=== PATIENT | female | born 1955 | race Caucasian/White ===

== ENCOUNTER 2017-01-09 12:07 | Day surgery (SDC) | payer OTHER ==
[~2017-01-09] VITALS: Ht 172.7 cm; Wt 69.3 kg
[2017-01-09] VITALS (9 sets, daily range): BP systolic 107–124; BP diastolic 50–69; PULSE 65–73; RESP 9–16; O2SAT 96–100
[~2017-01-09 12:07] MED LIST: COD1CAPS6 PO; FLAX340P PO; MIRA25TA PO; OMEG10005 PO; PRE20 PO; VIT1TABL83 PO; [UNRECOGNIZED DRUG - CODE] MM
[2017-01-09] MEDS ORDERED: EPHEDrine/NS 5 mg/mL 5 mL Syringe ONE (12:08)
[2017-01-09] MEDS ORDERED: fentaNYL-PF 50 mCg/mL 2 mL Inj ONE (12:08)
[2017-01-09] MEDS ORDERED: Propofol 10,000 mCg/mL 20 mL Inj ONE (12:08)
[2017-01-09] MEDS ORDERED: Ondansetron 2 mg/mL 2 mL Inj ONE (12:08)
[2017-01-09] MEDS ORDERED: Dexamethasone 4 mg/mL Inj ONE (12:08)
[2017-01-09] MEDS: Lactated Ringer's 1,000 ML IV SCH ×2 (12:10→14:33)
[2017-01-09] MEDS ORDERED: Lactated Ringer's 500 ML IV PRN (14:19)
[2017-01-09] MEDS ORDERED: Lactated Ringer's 1,000 ML IV SCH (14:19)
--- NOTE | 2017-01-09 14:19 | PCM.HPANE ---
Patient Data Date of Service: Jan 09, 2017 Surgeon Admitting Provider: Attending Provider:Puneet Wild MD Primary Care Physician:[facility] Other Provider:Fanny Munoz Anesthesia Reason for Visit Postmenopausal Bleeding Ht/WT & BMI Height (Feet): 5 Height (Inches): 9 Weight (Kilograms): 71.668 Body Mass Index 23.00 Allergies Coded Allergies: No Known Allergies (Verified Allergy, Unknown, 01/09/17) Past Anesthesia History Anesthesia History: Denies:: Abnormal Airway, Anesthesia Reactions, Difficult Intubation, Fam Anesthesia Reaction, Fam Malignant Hypertherm, Malignant Hyperthermia Diabetes History Hx Diabetes?: No MRSA MRSA: No Medications Home Meds Incl Beta Kel: No Reported Medications Mirabegron ER (Myrbetriq)25 Mg Eypnac19 Mg PO DAILY 01/05/17 Vit B Comp/C/FA/Iron/Vit E (Vitamin B Complex Tablet)1 Each Tablet1 Each PO 10/05/15 Flaxseed (Numoisyn)300 Ml Htnoek642 Ml MM DIRECTED PRN dry mouth 10/05/15 Flaxseed 340 Gm Wfmxug332 Gm PO DAILY 10/05/15 Cod Liver Oil 1 Each Capsule1 Each PO DAILY PRN as directed 10/05/15 [place]-3 Fatty Acids ([place]-3)1,000 Mg Brquqrr621-082 Mg PO DAILY 12/02/14 Discontinued Reported Medications Prednisone (PredniSONE)20 Mg Ttyqdd94 Mg PO DAILY Ref 0 01/05/17 Acetaminophen 325 Mg Wlsjnu194 Mg PO Q4H PRN For Fever Ref 0 10/05/15 Beta-Carotene (Lumitene)30 Mg Wczyijj42 Mg PO 10/05/15 [adrenal] No Conflict Check 12/03/14 [wild yam] No Conflict Check 12/03/14 [femco] No Conflict Check 12/03/14 [cortisol] No Conflict Check 12/03/14 Naproxen Sodium (Aleve)220 Mg Jpfnddf346 Mg PO Q12 12/02/14 History History of ENT Problems?: Yes HEENT History: Positive for:: Hearing Problem Denies:: Abnormal Airway Difficult Intubation Dysphagia Other HEENT Pertinent History: DECREASED TASTE & SMELL, IATROGENIC CUSHINGOID FEATURES S/P TONSILLECTOMY Hx of Heart Problems?: Yes Cardiovascular History: Positive for:: Irregular Heartbeat (HX OF SVT/ PALPITATIONS) Denies:: AICD Atrial Fibrillation Chest Pain Congestive Heart Failure Heart Murmur (ECHO 01/2013 EF 55-60%) Hypertension Pacemaker Valvular Heart Disease Hx of Respiratory Problem?: Yes Respiratory History: Positive for:: Pneumonia (PLUS BRONCHITIS W/ CAVITARY LESIONS S) Denies:: Asthma COPD Chest Surgery (S/P BRONCHOSCOPY W/U @ [facility] SY[facility].-SARCOIDOSIS ) Cough Hemoptysis Tuberculosis Hx Neurologic Problems?: No Neurological History: Denies:: CVA Dementia Hx of GI Problems?: Yes Gastrointestinal History: Positive for:: Gastroesphageal Reflux Denies:: Cirrhosis Diverticulitis (DIVERTICULOSIS) Hiatal Hernia Rectal Bleeding (HEMORRHOIDS) Other GI Pertinent History: S/P INGUINAL HERNIA RPR Hx of Problems?: Yes Female Hx: Denies:: Currently Skin History: Denies:: History Skin Disorders? Pressure Ulcers Hx Musculoskeletal Problems?: Yes Musculoskeletal History: Positive for:: Osteoarthritis Denies:: Back Injury (C/OF BACK PAIN) Joint Replacement Hx of Psycho/Social Problems?: No Psycho Social History: Denies:: Anxiety Hx Depression Hx Surgeries?: Yes (TONSILLECTOMY,INGUINAL HERNIA RPR CERVICAL CONE BX, BRONCHOSCOPY) Hx Any Other Health Problems?: Yes Other History: Denies:: Cancer Endocrine Disease Hospitalization Thyroid Disease History Blood Transfusions: Denies:: Blood Transfusions Hx Diabetes: No Hx Alcohol Use: No (QUIT )Hx Substance Use: No (QUIT -HX OF MARIJUANA,COCAINE ABUSE) Smoking Status: Never Smoker Have You Smoked inLast 12 mo: NoApprox How Many Cigarettes/day: 1/2 PPD X 3YRS Stop/Bang S-Snoring: Do You Snore Loudly: No T-Tired: feel tired, fatigued: No O-Obsered: Observed not breath: No P-Blood Pressure: treated: No B- Body Mass Index > 35 kg/m2: No A- Age over 50: Yes N- Neck Large Circumference: No G- Gender Male: No OSVALDO Total Score: 1 OSVALDO Risk Assessment: Low Risk, <3 Yes Risk Assessment Category Category 1A: Patient has history of documented sleep apnea, and HAS NOT received any narcotic, sedative or anesthesia administration during this stay. Category 1B: Patient has history of documented sleep apnea, and HAS received any narcotic , sedative or anesthesia administration during this stay Category 2: Patient has SUSPECTED Obstructive Sleep Apnea, and HAS received any narcotic , sedative or anesthesia administration during this stay. Category 3: Patient has SUSPECTED Obstructive Sleep Apnea and HAS NOT received narcotic, sedative or anesthesia administration during this stay. Category 4: Outpatient in Procedural Areas with known sleep apnea or who screen positive for High Risk via the STOP/BANG questionnaire. Exam Exam General Appearance: Alert, Oriented X3, Cooperative, No Acute Distress HEENT/AIRWAY: MP 2 Lungs: Normal Air Movement Heart: Exam Unremarkable Meds/Labs/Diagnostics Admission Meds Current Medications Lactated Ringer's (Lr) 1,000 ml @ 120 mls/hr Q8H20M IV Last administered on t 12:10; Start 01/09/17 at 05:00; Stop 01/09/17 at 13:19 Plan Impression Patient chart reviewed, patient interviewed and anesthestic plan with risks, benefits, and alternatives discussed, and informed consent obtained. NPO Status: 01/08 2200 ASA Physical Status: ASA2 Mod Systemic Disease Anesthetic Plan: GA Bene/Risks/Altern/Consents: Yes HP Complete Prior to Induction: Yes Maverick Zee MD Jan 09, 2017 13:02
[2017-01-09] MEDS ORDERED: Ondansetron 2 mg/mL 2 mL Inj IVPUSH PRN (14:20)
[2017-01-09] MEDS ORDERED: Dexamethasone 4 mg/mL Inj IVPUSH PRN (14:20)
[2017-01-09] MEDS ORDERED: HYDROmorphone 1 mg/mL Inj IVPUSH PRN (14:20)
[2017-01-09] MEDS ORDERED: Phenylephrine 10,000 mCg/mL Inj IVPUSH PRN (14:20)
[2017-01-09] MEDS ORDERED: Labetalol 5 mg/mL 4 mL Inj IV PRN (14:20)
[2017-01-09] MEDS ORDERED: hydrALAZINE 20 mg/mL Inj IVPUSH PRN (14:20)
[2017-01-09] MEDS ORDERED: MetoCLOpramide 5 mg/mL 2 mL Inj IVPUSH PRN (14:20)
[2017-01-09] MEDS ORDERED: Atropine 0.4 mg/mL Inj IVPUSH PRN (14:20)
[2017-01-09] MEDS ORDERED: EPHEDrine Sulfate 50 mg/mL Inj IVPUSH PRN (14:20)
[2017-01-09] MEDS ORDERED: fentaNYL-PF 50 mCg/mL 2 mL Inj IVPUSH PRN (14:20)
[2017-01-09] MEDS ORDERED: Albuterol-Ipratropium 3 mL Inhalation Solution NEB PRN (14:20)
[2017-01-09] MEDS ORDERED: Lidocaine 1%-Epi 1:100,000 20 mL Inj INFILTRATE ONE (14:48)
--- NOTE | 2017-01-09 15:36 | PCM.ANEP2 ---
Post Anesthesia Evaluation ASA/CMS Post Anesthesia Date of Service: Jan 09, 2017 VS in Patient's Normal Range?: Yes Resp Stable; Airway Patent?: Yes CV Function & Hydration Stable: Yes Mental Status Recovered?: Yes Pain control Satisfactory?: Yes N/V Control Satisfactory?: Yes Maverick Zee MD Jan 09, 2017 15:36
--- NOTE | 2017-01-09 15:36 | PCM.ANEP1 ---
Post Anesthesia Phase 1 PACU Phase 1 Assessment Date of Service: Jan 09, 2017 Vital Signs Vital Signs Date Time Temp Pulse Resp B/P Pulse Ox O2 Delivery O2 Flow Rate FiO2 01/09/17 13:18 36.3 67 16 124/69 96 Room Air Anesthetic Administered: GA Level of Alertness: Sleepy, easy to arouse RAYMUNDO's with Equal Strength: Yes Pain: No Nausea or Vomiting: No Oxygen Delivery: Nasal Cannula Lungs: Normal Air Movement Maverick Zee MD Jan 09, 2017 15:36
--- NOTE | 2017-01-09 15:37 | PCM.DIMED ---
Discharge Instructions Date of Service Jan 09, 2017 Dates of Hospitalization Diet No restrictions Activity No restrictions Call your provider Fever or Chills, Shortness of breath, Bleeding, Chest pain, Vomitting, Excessive diarrhea Patient Instructions Follow-up with PCP in: 2 weeks Puneet Wild MD Jan 09, 2017 15:36
--- NOTE | 2017-01-09 16:11 | OP ---
[address] [address] OPERATIVE REPORT PATIENT: EDELMIRA WADE : 1955 MR#: [id number] ADMIT: 01/09/2017 JOB ID: [id number] DATE OF SURGERY: 01/09/2017 PROCEDURE: 1. Diagnostic hysteroscopy. 2. Removal of right labia majora sebaceous cyst. PREOPERATIVE DIAGNOSIS(ES): 1. Postmenopausal bleeding. 2. Sebaceous cyst. POSTOPERATIVE DIAGNOSIS(ES): 1. Postmenopausal bleeding. 2. Sebaceous cyst. SURGEON: Puneet Wild MD. ANESTHESIA: General. ESTIMATED BLOOD LOSS: 5 mL. ESTIMATED URINE OUTPUT: 100 mL. FLUIDS: 800 mL of lactated Ringer. Fluid deficit using MyoSure hysteroscope 800 mL. COMPLICATIONS: None. PROCEDURE: The patient was brought to the operating room, where she underwent general anesthesia without difficulties. The patient was then placed in the dorsal lithotomy position using Carlo stirrups. She was prepped and draped in usual surgical fashion. Time-out was performed verifying correct patient, correct procedure. Two Campbell speculums were placed in the vagina. The cervix was identified and grasped with a tenaculum. It was very stenotic. Intracervical block was used using 2% lidocaine. A total of 20 cc of lidocaine was used during the procedure. Using Hegar dilators, the cervix was dilated to 8 mm. With the MyoSure hysteroscope, the uterine cavity was reviewed. The patient had atrophic changes. No polyps or significant intrauterine lesions were detected. The instruments were removed. There were two spotting areas at the insertion of the tenaculum that were controlled with application of silver nitrate sticks. The patient had 0.5 cm right labial sebaceous cyst that was removed. The area of the cyst was excised with the scalpel and the skin was reapproximated using 3-0 Vicryl. One interrupted stitch was applied. The specimen was sent to Pathology. All the instruments were removed and good hemostasis was achieved. The patient was repositioned back into the supine position. She tolerated the procedure well and was transferred to the recovery room in stable condition.
--- NOTE | 2017-01-11 14:17 | PATH ---
SURGICAL PATHOLOGY Attending Physician:Puneet Wild MD CASE STATUS: Signed Out PATIENT NAME: EDELMIRA WAED PID: [id number] : 1955 DATE COLLECTED:01/09/2017 23:28 SPECIMEN: Labium, Biopsy CLINICAL HISTORY: POST MENOPAUSAL BLEEDING SEBACEOUS CYST 1). RIGHT LABIA MAJORA SKIN LESION FINAL DIAGNOSIS: 1.RIGHT LABIA MAJORA SKIN LESION: EPIDERMAL INCLUSION CYST. NO EVIDENCE OF MALIGNANCY. ICD10 CODE L72.0 GROSS DESCRIPTION: The specimen is received in one formalin filled container labeled with the patient's name, sublabeled "right labia majora skin lesion" and consists of a 0.4 x 0.3 x 0.2 CM ansari-urias portion of tissue and friable material inked blue bisected and entirely submitted in one cassette 01/10/2017 DAC MICRO DESCRIPTION: See diagnosis. ICD-9 CODES: CPT CODES: 97473 Electronically Signed Out Marlene Snowden MD [facility] [address], [place] [address] Technical component performed at [facility], [facility] [address], [place], [address]
== END 2017-01-09 23:59 | disposition home or self-care (01) ==
LOC: SAS 12:07
PROVIDERS: ATTEND Legal Medicine
DX: N95.0 Postmenopausal bleeding (principal); L72.0 Epidermal cyst; K21.9 Gastro-esophageal reflux disease without esophagitis; M19.90 Unspecified osteoarthritis, unspecified site; Z79.899 Other long term (current) drug therapy
CPT/HCPCS: 57135; 58558; J1100; J2250; J2405; J3010; J7120

== ENCOUNTER 2017-02-01 03:18 | Emergency (ER) | payer OTHER ==
[~2017-02-01] VITALS: Ht 172.7 cm; Wt 68.2 kg
[~2017-02-01 03:18] MED LIST changes: -PRE20 PO
[2017-02-01 03:27] VITALS: BP 133/54; PULSE 92; RESP 18; O2SAT 92
--- NOTE | 2017-02-01 03:31 | ED.REPORT ---
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 Yesterday morning, the patient woke up with body aches and chills. The patient took Tylenol and took a hot bath which relieved her symptoms. Then at 2230 the patient started to have a headache and body aches rated 8/10. She went to bed and then began to have severe chills like she has never experienced before, severe joint pain, and extreme thirst. The patient subsequently took 3 Tylenol and went to bed again, and then decided to go to the ED. Body aches are currently rated 4/10. The patient does have baseline body aches related to degenerative disease, with current body aches being worse than baseline. She does not have baseline chills. The patient has baseline heart skips, but reports that she is not experiencing any heart skips different than baseline.Associated symptoms include intermittent dysuria in the last few days, the patient reporting that she has felt like she has had a bladder infection. She also has baseline cough. She denies any fever, new cough, ear pain, or sore throat. Nursing Notes Stated Complaint: BODY ACHES Chief Complaint: General Complaint Nursing Notes Reviewed: Yes Allergies: Coded Allergies: No Known Allergies (Verified Allergy, Unknown, 02/01/17) Scheduled Cephalexin (Cephalexin) 500 Mg Capsule 500 MG PO TID Flaxseed (Flaxseed) 340 Gm Powder 340 GM PO DAILY Mirabegron ER (Myrbetriq) 25 Mg Tablet 25 MG PO DAILY [place]-3 Fatty Acids ([place]-3) 1,000 Mg Capsule 350-400 MG PO DAILY Scheduled PRN Cod Liver Oil (Cod Liver Oil) 1 Each Capsule 1 EACH PO DAILY PRN PRN as directed Flaxseed (Numoisyn) 300 Ml Liquid 300 ML MM DIRECTED PRN PRN dry mouth Miscellaneous Medications Vit B Comp/C/FA/Iron/Vit E (Vitamin B Complex Tablet) 1 Each Tablet 1 EACH PO General Time Seen by MD: 03:30 Chief Complaint Other (body aches) Hx Obtained From: Patient Arrived By: Walk-in Onset Occurred: Yesterday (yesterday at 2230.) Symptom Duration: Since onset Severity: Current: Pain level 4 out of 10 Severity: Maximum: Pain level 8 out of 10 Recent Healthcare: Recent doctor visit Similar Sx Previous: No Past Medical History Past Medical History stage 4 sarcoidosis arthritis GERD patient is not on any pain medications or immunosuppressants. Past Surgical History inguinal hernia cervix surgery tonsillectomy Smoking History Never Smoker Social History Denies any drug use. Alcohol Use: Denies alcohol use Drug Use: Denies drug use Ambulatory Status Independent Review of Systems Body aches. Joint pain. Extreme thirst. Denies heart skips other than baseline. Full Review of Systems Constitutional: Reports: Chills, Denies: Fever Ears / Nose / Throat: Denies: Earache left, Earache right, Sore throat Respiratory: Denies: Non-productive cough Female: Reports: Dysuria Complete sys rev & neg: except as marked. Physical Exam Vital Signs Vital Signs Date Time Temp Pulse Resp B/P Pulse Ox O2 Delivery O2 Flow Rate FiO2 02/01/17 03:27 37.9 92 18 133/54 92 Room Air Initial VS: Reviewed, Vital signs normal Respiratory: Breath sounds normal, Clear to auscultation, No respiratory distress General/Constitutional: Awake, Alert No distress. Patient is well hydrated. Head / Eyes: Normocephalic, PERRL, EOMI ENT: Atraumatic, Mucous membranes moist Neck: No JVD Cardiovascular: Heart rate NL, Regular rhythm, Heart sounds NL, No gallop, No murmurs, No rubs No peripheral edema. Abdomen: No guarding, No rebound Skin: Atraumatic, Color NL, No rash, Warm, Dry Neurologic: Oriented X3, Speech NL Interpretation & Diagnostics Interpretation & Diagnostics: Negative FLU. Lab Results Interpretation Result Diagram: 02/01/17 0415 02/01/17 0415 Test 02/01/17 03:55 02/01/17 04:15 Urine Color Yellow (YELLOW) Urine Appearance Cloudy (CLEAR,HAZY) Urine pH 8.5 (5.0-8.0) Urine Specific [place] 1.020 (1.003-1.035) Urine Protein Tracemg/dL (NEG,TRACE) Urine Glucose (UA) Negativemg/dL (NEGATIVE) Urine Ketones Negativemg/dL (NEGATIVE) Urine Occult Blood Trace (NEGATIVE) Urine Nitrite Negative (NEGATIVE) Urine Bilirubin Negative (NEGATIVE) Urine Urobilinogen Normalmg/dL (NORMAL) Urine Leukocyte Esterase Moderate (NEGATIVE) Urine RBC 0-2/hpf (0-2) Urine WBC >50/hpf (0-5) Urine Epithelial Cells Occasional/hpf (NONE-MOD) Urine Crystals None seen (NONE SEEN) Urine Bacteria Many/hpf (NONE-FEW) Urine Hyaline Casts None/lpf (NONE) Urine Granular Casts None seen (NONE SEEN) Urine Waxy Casts None seen (NONE SEEN) Urine Red Blood Cell Casts None seen (NONE SEEN) Urine White Blood Cell Casts None seen (NONE SEEN) Urine Mucus Present (None Seen) Urine Trichomonas None seen (NONE SEEN) Urine Yeast None (NONE SEEN) Urinalysis Comment None Urine Culture Reflexed Indicated Hold Urine Received (Received) White Blood Count 11.0th/mm3 (3.8-10.1) Red Blood Count 3.93mil/mm3 (3.90-5.20) Hemoglobin 12.3g/dL (12.0-15.6) Hematocrit 36.1% (35.0-46.0) Mean Corpuscular Volume 91.9fL (81-100) Mean Corpuscular Hemoglobin 31.3pg (27.0-35.0) Mean Corpuscular Hemoglobin Concent 34.1% (32.0-37.0) Red Cell Distribution Width 12.6% (12.3-15.4) Platelet Count 243bil/L (150-400) Neutrophils (%) (Auto) 86.2% (40-74) Lymphocytes (%) (Auto) 3.6% (14-46) Monocytes (%) (Auto) 9.1% (4-12) Eosinophils (%) (Auto) 0.6% (0-5) Basophils (%) (Auto) 0.3% (0-3) Sodium Level 139mEq/L (134-144) Potassium Level 3.9mEq/L (3.5-5.2) Chloride Level 102mEq/L (97-108) Carbon Dioxide Level 22mmol/L (18-29) Blood Urea Nitrogen 10mg/dL (8-27) Creatinine 0.58mg/dL (0.57-1.00) Estimat Glomerular Filtration Rate 152mL/min (>59) Glucose Level 135mg/dL (60-99) Calcium Level 9.4mg/dL (8.5-10.1) Magnesium Level 1.8mg/dL (1.6-2.6) Total Bilirubin 0.6mg/dL (0.0-1.2) Aspartate Amino Transf (AST/SGOT) 17U/L (0-50) Alanine Aminotransferase (ALT/SGPT) 15U/L (0-32) Alkaline Phosphatase 115U/L (25-165) Troponin T < 0.010ug/L (0.0-0.011) Total Protein 7.2g/dL (6.4-8.4) Albumin 3.6g/dL (3.4-5.0) Lipase 24U/L (13-60) Hold Posada Top Tube Received (Received) Lab values outside NL range: no clinical significance. Lab Results Interpretation: Mild elevation in nonfasting glucose. Mild elevation in white count. Too numerous to count white cells per high-power field in the urine. Re-Eval/Medical Decision Med Decision/Clinical Course UTI without overt sepsis. She will given fluid and Rocephin. She will be discharged home on Keflex and to drink plenty of fluids and cranberry juice. Follow-up with her regular doctor in the next 2 or 3 days. Source of Hx: Old records Time of Eval: 04:48 Re-Evaluation/Progress Note: Rechecked patient and explain UTI diagnosis. Explained plan for discharge. Patient understands and agrees with the plan. All questions adressed. Counseled Regarding: Diagnosis, Lab results, Need for follow-up, When/why to return to ED Discharge & Departure Primary Impression: UTI (urinary tract infection) Urinary tract infection type: acute cystitis Hematuria presence: without hematuria Qualified Code: N30.00 - Acute cystitis without hematuria Disposition: Home Discharge Condition Condition: Stable Patient Instructions: Urinary Tract Infection in Women (ED) Additional Instructions: You have a urinary tract infection, a likely cause of your symptoms. He received Rocephin 2 g IV. This is to be followed with cephalexin 500 mg 3 times a day until gone Referrals: [facility] (PCP) Scribe Attestation Portions of this note were transcribed by Karan Ruiz. I, Dr. Duarte personally performed the history, physical exam and medical decision-making; I reviewed and confirmed the accuracy of the information in the transcribed note. Signed by: Luis Fernando Flores, 02/01/2017 0538. copies to: [facility] CollaborativeKevin durbin MD Feb 01, 2017 03:31 Karan Ruiz Feb 01, 2017 03:53
[2017-02-01] MEDS ORDERED: 0.9% Sodium Chloride 1,000 ML IV ONE (03:57)
[2017-02-01 04:07] LABS: APPEARANCE,URINE CLOUDY (CLEAR,HAZY); COLOR,URINE YELLOW (YELLOW); OCCULT BLOOD,URINE TRACE (NEGATIVE); PH,URINE 8.5 (5.0-8.0); UROBILINOGEN,URINE NORMAL (NORMAL)
[2017-02-01 04:22] LABS: BASOPHILS % (AUTO) 0.3 % (0-3); EOSINOPHILS % (AUTO) 0.6 % (0-5); MONOCYTES % (AUTO) 9.1 % (4-12); Mean Corpuscular Hemoglobin 31.3 pg (27.0-35.0); Mean Corpuscular Volume 91.9 fL (81-100); NEUTROPHILS % (AUTO) 86.2 % (40-74); Platelet Count 243 bil/L (150-400)
[2017-02-01 04:48] LABS: TROPONIN T < 0.010 ug/L (0.0-0.011)
[2017-02-01 04:56] LABS: Lipase 24 U/L (13-60); Magnesium 1.8 mg/dL (1.6-2.6)
[2017-02-01] MEDS ORDERED: cefTRIAXone Inj 2,000 MG in Dextrose 5% Minibag Plus 50 ML IV ONE (05:00)
[2017-02-01] MEDS ORDERED: CEPH500C PO (05:35)
[2017-02-01 05:54] VITALS: BP 122/74; PULSE 92; RESP 14; O2SAT 98
== END 2017-02-01 05:56 | disposition home or self-care (01) ==
LOC: SED 03:18
DX: N30.00 Acute cystitis without hematuria (principal); B96.20 Unspecified Escherichia coli [E. coli] as the cause of diseases classified elsewhere; K21.9 Gastro-esophageal reflux disease without esophagitis
CPT/HCPCS: 36415; 80053; 81000; 83690; 83735; 84484; 85025; 87086; 87088; 87186; 87804; 96361; 96365; 99285; J0696; J7030